=== PATIENT | male | born 1955 | race Caucasian/White ===

== ENCOUNTER 2019-04-28 08:56 | Day surgery (SDC) | payer BC ==
[~2019-04-28] VITALS: Ht 182.9 cm; Wt 94.3 kg
[2019-04-28] VITALS (11 sets, daily range): BP systolic 159–187; BP diastolic 98–118
[~2019-04-28 08:56] MED LIST: HEParin (CATH LAB) 2,000 ML IV ONE; HYDR1TAB PO; LIDOCAINE 1% INJ 20 ML 20 ML VIAL ONE; NS IV 1000 ML 1,000 ML ONE
[2019-04-28] MEDS ORDERED: NS IV 1000 ML 1,000 ML IV SCH ×2 (08:59→13:17)
[2019-04-28 09:22] LABS: HEMOGLOBIN 15.6 G/DL (13.3-17.7); MEAN PLATELET VOLUME 10.2 FL (7.4-10.4); RED CELL DISTRIBUTION WIDTH 12.9 % (10.0-14.5); WHITE BLOOD COUNT 8.6 10^3/uL (4.3-11.0)
[2019-04-28] MEDS ORDERED: CITA20TA9 PO (09:26)
[2019-04-28] MEDS ORDERED: MULT-633 PO (09:26)
[2019-04-28] MEDS ORDERED: RT-ALBUINH IH (09:26)
[2019-04-28] MEDS ORDERED: METO-333 PO (09:26)
[2019-04-28] MEDS ORDERED: ASPI-586 PO (09:26)
[2019-04-28 09:39] LABS: INR 0.9 (0.8-1.4); PROTHROMBIN TIME PATIENT 12.8 SEC (12.2-14.7)
[2019-04-28 09:45] LABS: ALBUMIN 4.3 GM/DL (3.2-4.5); BILIRUBIN,TOTAL 0.6 MG/DL (0.1-1.0); CALCIUM 9.3 MG/DL (8.5-10.1); CREATININE SERUM 1.67 MG/DL (0.60-1.30); POTASSIUM 4.1 MMOL/L (3.6-5.0)
[2019-04-28] MEDS ORDERED: MIDAZOLAM 5 MG/5 ML (VERSED) VIAL ONE (10:53)
[2019-04-28] MEDS ORDERED: fentaNYL INJECTION 100 MCG/2 ML AMP ONE (10:53)
--- OUTSIDE RECORDS SUMMARY | 2019-04-28 10:58 | XMS REPORT ---
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 V58.69 Nov, 0 [id number] Problem Multiple pulmonary nodules 793.19 Mar, 0 [id number] Problem Abdominal aortic aneurysm (AAA) I71.4 Oct, 0 57159923 Problem S/P aortic aneurysm repair Z98.890 Nov, 0 569375844 Problem Multiple pulmonary nodules R91.8 Mar, 0 217348405 Problem shelter current use of antiarrhythmic drug Z79.899 Nov, 0 312780171 Problem Paroxysmal atrial fibrillation 427.31 Oct, 0 465263018 Problem Crushing injury of right leg S87.81XA Apr, 0 81142738 Problem Precordial pain 786.51 Jan, 0 64201102 Problem Crushing injury of right leg 928.9 Apr, 0 31414120 Problem Hemiparesis G81.90 Sep, 0 11246832 Problem Precordial pain R07.2 Jan, 0 63844610 Problem Paroxysmal atrial fibrillation I48.0 Oct, 0 212172695 Problem Hemiparesis 342.90 Sep, 0 78093083 ALLERGIES No Information ENCOUNTERS Encounter Location Date Diagnosis [facility] [address] [place] [address] February, [facility] [address] [place] [address] Dec, [facility] [address] [facility] [id number] [place] [address] Oct, [facility] [address] [facility] [id number], [place] [address] Sep, [facility] [address] [facility] [id number], [place] [address] Nov, [facility] [address] [facility] [id number], [place] [address] Sep, IMMUNIZATIONS No Known Immunizations SOCIAL HISTORY Never Assessed REASON FOR VISIT Medication refill request PLAN OF CARE VITAL SIGNS MEDICATIONS Medication Instructions Dosage Frequency Start Date End Date Duration Status Amlodipine Besylate 10 MG Orally Once a day 1 tablet 24h Dec, 30 day(s) Active Amiodarone HCl 200 MG Orally Once a day 1 tablet 24h Dec, 30 day(s) Active Metoprolol Tartrate 25 MG Orally Twice a day 1 tablet with food 12h Dec, 30 day(s) Active Aspir-81 81 mg Orally Once a day 1 tablet 24h Dec, 30 day(s) Active Ventolin HFA 108 (90 Base) MCG/ACT Inhalation every 6 hrs 2 puffs as needed 6h Dec, 30 days Active Citalopram Hydrobromide 20 MG Orally at bedtime 1 tablet Dec, 30 day(s) Active RESULTS No Results PROCEDURES No Known procedures INSTRUCTIONS MEDICATIONS ADMINISTERED No Known Medications
--- OUTSIDE RECORDS SUMMARY | 2019-04-28 10:58 | XMS REPORT | Continuity of Care Document ---
Author Organization Unknown Address Unknown Allergies Active Description Code Type Severity Reaction Onset Reported/Identified Relationship to Patient Clinical Status Yes No Known Drug Allergies [id number] Drug Allergy Unknown N/A 05/15/2013 Medications There is no data. Problems There is no data. Procedures There is no data. Results Test Result Range A1C - 04/07/19 08:14 HEMOGLOBIN A1c 5.4 % of total Hgb <5.7 PSA (FREE AND TOTAL) - 04/07/19 08:14 PSA, TOTAL 2.1 ng/mL < OR=4.0 PSA, FREE 0.6 ng/mL NRG PSA, % FREE 29 % (calc) >25 Encounters ACCT No. Visit Date/Time Discharge Status Pt. Type Provider Facility Loc./Unit Complaint [id number] 04/09/2019 14:30:00 04/09/2019 23:59:59 [facility] [id number] 04/07/2019 08:15:00 Document Registration [id number] 05/15/2013 17:16:00 05/15/2013 20:24:00 DIS Emergency [id number] 04/28/2019 11:00:00 PEN Preadmit [facility] CATH CHEST DISCOMFORT
--- OUTSIDE RECORDS SUMMARY | 2019-04-28 10:58 | XMS REPORT | Continuity of Care Document ---
Author Author [facility] Organization [facility] Address Unknown Phone Unavailable Care Team Providers Care Meat Packager Name Role Phone NO, LOCAL PHYSICIAN PP Unavailable Insurance Providers Payer Name Policy Number Subscriber Name Relationship Work Comp Prashant Winters Advance Directives Directive Response Recorded Date Advance Directives N 05/15/13 5:34pm Problems No Known Problems or Medical conditions. Social History History Response Recorded Date/Time Alcohol Use Occasionally Uses 05/15/13 5:34pm Recreational Drug Use N 05/15/13 5:34pm Allergies, Adverse Reactions, Alerts Allergen Type Severity Reaction Last Updated No Known Drug Allergies 05/15/13 Medications Medication Dose Units Route Sig Qty Days Acetaminophen/Hydrocodone Bitart (Vicodin 5-500 Tablet) 1 - 2 Each PO Q4HR PRN 10 Response Recorded Date/Time Status not known Unknown Results No Known Relevant Diagnostic Tests, Laboratory Data and/or Discharge Summary. Encounters Encounter Location Date/Time Departed Emergency Room [facility] 05/15/13 5:16pm
[2019-04-28] MEDS ORDERED: LIDOCAINE 1% INJ 20 ML 20 ML VIAL ONE (12:00)
--- NOTE | 2019-04-28 13:17 | Cardiac Procedure Note-CS/ASA ---
Pre-Procedure Note Pre-Op Procedure Note H&P Reviewed The H&P was reviewed, patient examined and no changes noted. Date H&P Reviewed: Apr 28, 2019 Time H&P Reviewed: 11:30 Conscious Sedation Pre-Proced Time 11:30 ASA Score 3 For ASA 3 and 4: Consider anesthesia and medical clearance. Also, for patients with a history of failed moderate sedation consider anesthesia. Airway Lungs Heart ASA score ASA 1: a normal healthy patient ASA 2: a patient with a mild systemic disease (mid diabetes, controlled hypertension, obesity ASA 3: a patient with a severe systemic disease that limits activity (angina, COPD, prior Myocardial infarction) ASA 4: a patient with an incapacitating disease that is a constant threat to life (CHF, renal failure) ASA 5: a moribund patient not expected to survive 24 hrs. (ruptured aneurysm) ASA 6: a declared brain- patient whose organs are being harvested. For emergent operations, add the letter E after the classification Mallampati Classification Grade 2 Sedation Plan Analgesia, Amnesia, Plan communicated to team members, Discussed options with patient/fam, Discussed risks with patient/fam The patient is an appropriate candidate to undergo the planned procedure, sedation, and anesthesia. The patient immediately re-assessed prior to indication. MADALYN CHICAS MD FACP FAC CCDS Apr 28, 2019 13:17
[2019-04-28] MEDS ORDERED: PRAV20TA3 PO (13:25)
[2019-04-28] MEDS ORDERED: PATIENT MAY USE OWN MEDS, ALL PO SCH (13:30)
--- NOTE | 2019-04-28 13:34 | Discharge Inst-Post CATH ---
Discharge Inst-CATH/EP Post Cardiac Cath/EP D/C Inst Follow Up/Plan F/u at Dr Pulliam's office in 2-3 weeks Remove groin dressing tomorrow morning ACTIVITY * Go Home directly and rest. * Limit activity of the leg (or wrist if it was used) for 7 days including aerobics, swimming, jogging, bicycling, etc. * Restrict stair-climbing for 7 days if possible, if not, climb up with your non-cath leg, then bring together on the same step. * Avoid lifting, pushing, pulling or excessive movement of the affected extremity for 7 days. * Customary sexual activity may be resumed after 2 days-use caution not to use a position that strains or causes pain to the affected extremity. * No driving for 24 hours. * NO SMOKING. * Avoid straining for bowel movements for 7 days. * Gentle walking on level ground is allowed. * Returning to work will depend on the type of procedure and the results. Your doctor will discuss this with you. CALL YOUR DOCTOR FOR ANY OF THE FOLLOWING: *If bleeding from the puncture site occurs- Apply gentle pressure to site with clean cloth and call your doctor or EMS. * If a knot or lump forms under the skin, increases in size, or causes pain. * If bruising appears to be worsening or moving further down your leg instead of disappearing. * Temperature above 101 F. CARE OF YOUR GROIN INCISION; * Bruising or purple discoloration of the skin near the puncture site is common. * You may shower only, no bathtub bathing for 5 days. Be careful to avoid slipping as your leg may feel stiff. * If a closure device was used on your femoral artery, please see the attached guide regarding care of the device and your leg. * Leave dressing on FOR 24 hours. CARE OF YOUR WRIST INCISION; * Bruising or purple discoloration of the skin near the puncture site is common. * You may shower. * DO NOT submerge wrist. * Leave dressing on FOR 24 hours. MADALYN PULLIAM MD FACP FAC CCDS Apr 28, 2019 13:34
--- NOTE | 2019-04-28 13:35 | Discharge Inst-Cardiology ---
Discharge Inst-Cardiac Discharge Medications New Medications: Pravastatin Sodium (Pravastatin Sodium) 20 Mg Tablet 20 MG PO DAILY for 30 Days, #30 TAB 5 Refills Continued Medications: Albuterol Sulfate (Proair Hfa) 1 Puff Puff 2 PUFF IH Q6H, PUFF 1 PUFF = 90 MCG Aspirin (Aspir 81) 81 Mg Tablet.dr 81 MG PO DAILY, TAB Citalopram Hydrobromide (Citalopram HBr) 20 Mg Tablet 20 MG PO DAILY, TAB Metoprolol Tartrate (Metoprolol Tartrate) 25 Mg Tablet 25 MG PO BID, TAB Multivitamin (Daily Value) 1 Each Tablet 1 EACH PO DAILY, TAB MADALYN CHICAS MD FACP FAC CCDS Apr 28, 2019 13:35
--- NOTE | 2019-04-28 14:31 | CARDIAC CATHETERIZATION ---
DATE OF SERVICE: 04/28/2019 CARDIAC CATHETERIZATION REPORT The patient is a 64-year-old man who has multiple coronary artery disease risk factors and has a history of AAA repair at [facility] and also had unilateral nephrectomy at that time, which left him with chronic renal insufficiency. Lately, he has had symptoms consistent with angina pectoris. Cardiac catheterization was carried out today after having obtained informed consent. He was also made aware of his additional risk of contrast nephropathy, given baseline renal insufficiency. PROCEDURE: He was brought to the [facility] [place]. Vigorous perioperative hydration was started a few hours prior to the procedure, continued during the procedure and afterwards. He was brought to the cardiac catheterization laboratory. Right groin was prepared and draped in the usual sterile fashion. Lidocaine 1% with local anesthesia. Modified Seldinger technique was used to advance a 5-Tongan sheath in the right femoral artery. We used 5-Tongan JL3.5 and 5-Tongan JL4 catheters to engage the left coronary artery, but we were not able to do so. We engaged the right coronary artery with a 5-Tongan JR4 catheter. We used a pigtail to carry out left heart catheterization. Left ventricular angiography was not performed to conserve contrast. The pigtail was pulled back to the aortic root and aortic root angiography was performed. This was to see the location of the left coronary artery, which we were not able to engage with the 5-Tongan catheters. We did identify the location. We exchanged the sheath over a wire for a 6-Tongan sheath. We used a 6-Tongan JL4.5 catheter to engage the left coronary artery and diagnostic angiography was performed. The catheter was removed. Angiography of the right coronary artery was carried out through the sheath. Mynx was used to achieve hemostasis. He tolerated the procedure well. HEMODYNAMICS: Left ventricular end-diastolic pressure following coronary angiography was 14 mmHg. There is no significant pressure gradient on pullback across the aortic valve. Ascending aortic pressure was 162/95 with a mean of 120 mmHg. CORONARY ANGIOGRAPHY: Diffuse moderate coronary artery disease is present. There are multiple stenoses of up to 40% to 50%. Mild coronary calcification is also seen. AORTIC ROOT ANGIOGRAPHY: Aortic root angiography did not indicate any significant thoracic aortic aneurysm or dissection, to the extent visualized. Aortic valve leaflets exhibit good leaflet excursion. There does not appear to be significant aortic regurgitation. The origin of the coronary arteries was identified. CONCLUSIONS: 1. Diffuse moderate coronary artery disease involving all 3 vessels in multiple lesions of 40% to 50%. 2. Mild elevation of left ventricular end-diastolic pressure. DISCUSSION AND RECOMMENDATIONS: Based on results of the study, it appears appropriate to continue a conservative approach. Risk factor modification has been reviewed with him and outpatient followup is advised. Job ID: [id number] DocumentID: [id number] Dictated Date: 04/28/2019 12:18:03 Assistant Real Estate Manager Date: 04/28/2019 14:31:19 Dictated By: MADALYN CHICAS MD, MA, FACP, FACC,
[2019-04-28] MEDS ORDERED: AMLO5TAB4 PO (16:06)
[2019-04-28] MEDS ORDERED: amLODIPine 5 MG (NORVASC) TAB PO ONE (16:15)
--- NOTE | 2019-04-28 17:35 | OPERATIVE REPORT ---
DATE OF SERVICE: 04/28/2019 PREOPERATIVE DIAGNOSIS: History of stroke of undetermined etiology. POSTOPERATIVE DIAGNOSIS: History of stroke of undetermined etiology. PROCEDURE PERFORMED: Implantable loop recorder implantation. INDICATIONS: The patient is a 64-year-old man, who has had a stroke of which the etiology has not been determined. He has a history of palpitations which are infrequent. Implantable loop recorder implantation was carried out to evaluate for atrial fibrillation as a source of his stroke. DESCRIPTION OF PROCEDURE: Informed consent was obtained. [facility] The left prepectoral area was prepared and draped in the usual sterile fashion. Lidocaine 1% was used for local anesthesia. We used the tools provided with the iFollo Reveal LINQ device. A small incision was made anterior to the left fourth intercostal space and the device was placed in the subcutaneous space and the skin closed with a Dermabond and Steri-Strips. He tolerated the procedure well. The serial number of the device is [id number]. Job ID: [id number] DocumentID: [id number] Dictated Date: 04/28/2019 12:30:15 Buyer Planner Date: 04/28/2019 17:35:12 Dictated By: MADALYN CHICAS MD, MA, FACP, FACC,
== END 2019-04-28 16:30 | disposition home or self-care (01) ==
LOC: CATH 08:56 → SDC 13:00 → CATH 16:30
PROVIDERS: ATTEND Nurse Practitioner Family
DX: I48.0 Paroxysmal atrial fibrillation (principal); I69.354 Hemiplegia and hemiparesis following cerebral infarction affecting left non-dominant side; R00.2 Palpitations; N18.3 Chronic kidney disease, stage 3 (moderate); R07.89 Other chest pain; Z90.5 Acquired absence of kidney; Z79.82 Long term (current) use of aspirin; Z79.899 Other long term (current) drug therapy
CPT/HCPCS: 33285; 36415; 80053; 80061; 85027; 85610; 85730; 87081; 93458; 93567

== ENCOUNTER → 2019-05-14 | Outpatient (CLI) | payer BC ==
[~2019-05-14] MED LIST changes: +AMLO5TAB4 PO; +ASPI-586 PO; +CITA20TA9 PO; -HEParin (CATH LAB) 2,000 ML IV ONE; -LIDOCAINE 1% INJ 20 ML 20 ML VIAL ONE; +METO-333 PO; +MULT-633 PO; -NS IV 1000 ML 1,000 ML ONE; +PRAV20TA3 PO; +RT-ALBUINH IH
[2019-05-14 09:21] LABS: CREATININE SERUM 1.55 MG/DL (0.60-1.30); POTASSIUM 4.2 MMOL/L (3.6-5.0)
== END ==
LOC: RAD FS 08:26
PROVIDERS: ATTEND Internal Medicine Cardiovascular Disease
DX: N18.3 Chronic kidney disease, stage 3 (moderate) (principal)
CPT/HCPCS: 36415; 80048

== ENCOUNTER 2019-07-20 19:42 | Outpatient (CLI) | payer BC | END 2019-07-21 06:07 | disposition home or self-care (01) | LOC: SLEEP 19:42 | PROVIDERS: ATTEND Nurse Practitioner | DX: G47.33 Obstructive sleep apnea (adult) (pediatric) (principal); G47.10 Hypersomnia, unspecified; I48.91 Unspecified atrial fibrillation; G47.61 Periodic limb movement disorder; Z86.73 Personal history of transient ischemic attack (TIA), and cerebral infarction without residual deficits | CPT/HCPCS: 95810 ==

== ENCOUNTER → 2020-04-25 | Outpatient (CLI) | payer MEDICARE ==
[2020-04-25 08:46] LABS: BASOPHILS % (AUTO) 1 % (0-10); EOSINOPHILS % (AUTO) 4 % (0-10); HEMATOCRIT 42 % (40-54); HEMOGLOBIN 14.1 G/DL (13.3-17.7); LYMPHOCYTES % (AUTO) 32 % (12-44); MEAN CORPUSCULAR HEMOGLOBIN 31 PG (25-34); MEAN CORPUSCULAR HGB CONC 33 G/DL (32-36); MEAN CORPUSCULAR VOLUME 93 FL (80-99); MEAN PLATELET VOLUME 9.9 FL (7.4-10.4); MONOCYTES % (AUTO) 8 % (0-12); PLATELET COUNT 324 10^3/uL (130-400); RED CELL DISTRIBUTION WIDTH 12.9 % (10.0-14.5); WHITE BLOOD COUNT 9.1 10^3/uL (4.3-11.0)
[2020-04-25 08:47] LABS: BASOPHILS # (AUTO) 0.1 10^3/uL (0.0-0.1); EOSINOPHILS # (AUTO) 0.4 10^3/uL (0.0-0.3); MONOCYTES # (AUTO) 0.8 X 10^3 (0.0-1.0); NEUTROPHILS % (AUTO) 55 % (42-75)
[2020-04-25 09:00] LABS: ALBUMIN 4.1 GM/DL (3.2-4.5); BILIRUBIN,TOTAL 0.4 MG/DL (0.1-1.0); CALCIUM 8.7 MG/DL (8.5-10.1); CREATININE SERUM 1.36 MG/DL (0.60-1.30); TOTAL PROTEIN 7.1 GM/DL (6.4-8.2)
== END ==
LOC: LAB FS 08:15
PROVIDERS: ATTEND Internal Medicine Cardiovascular Disease
DX: I48.0 Paroxysmal atrial fibrillation (principal)
CPT/HCPCS: 36415; 80053; 83735; 84443; 85025

== ENCOUNTER → 2020-05-24 | Outpatient (CLI) | payer MEDICARE ==
--- NOTE | 2020-05-24 14:12 | Diagnostic Imaging Report ---
PROCEDURE: MR imaging of the brain without contrast. TECHNIQUE: Multiplanar, multisequence MR imaging of the brain was performed without contrast. INDICATION: Stroke-like symptoms. FINDINGS: There is nonspecific mild periventricular and subcortical white matter disease as a nonspecific finding but often attributed to the sequelae of chronic small vessel disease. No acute or suspicious appearing white matter pathology. No findings of vasogenic or cytotoxic edema. No abnormal diffusion restriction. No evidence for an acute or subacute ischemic infarct. There is no mass or mass effect. No evidence for an elevation to the intracranial pressures and there are no findings of hemorrhage. There are no abnormal extra-axial fluid collections. The basilar cisterns are patent. IMPRESSION: Mild nonspecific white matter disease. No findings of recent infarct, hemorrhage, or mass effect. No acute appearing abnormalities. Dictated by: Dictated on workstation # [id number]
== END ==
LOC: RAD 13:15
PROVIDERS: ATTEND Psychiatry & Neurology Neurology
DX: I63.9 Cerebral infarction, unspecified (principal)
CPT/HCPCS: 70551

== ENCOUNTER → 2020-08-09 | Outpatient (CLI) | payer MEDICARE ==
--- NOTE | 2020-08-09 14:54 | Diagnostic Imaging Report ---
INDICATION: Palpable lump right elbow. Time of exam 2:36 p.m. Three views of the right elbow were obtained. There is soft tissue swelling about the posterior elbow. This could be owing to olecranon bursitis. Olecranon appears to be intact. Proximal radius and distal humerus are intact. No fractures are seen. There is no joint effusion. IMPRESSION: Posterior soft tissue swelling, perhaps owing to olecranon bursitis. Dictated by: Dictated on workstation # [id number]
== END ==
LOC: RAD FS 14:18
PROVIDERS: ATTEND Nurse Practitioner
DX: M25.521 Pain in right elbow (principal)
CPT/HCPCS: 73080

== ENCOUNTER → 2021-06-01 | Outpatient (CLI) | payer MEDICARE ==
[~2021-06-01] MED LIST changes: +CATHETER FLUSH 10 ML SYR IV PRN; +HOLD METFORMIN - RECEIVED CONTRAST 20 ML VIAL IV SCH; +IOHEXOL 350 MG/ML 100 ML (OMNIPAQUE 350) VIAL IV ONE; +NS 100 ML (IVPB) BAG IV ONE
--- NOTE | 2021-06-01 11:36 | Diagnostic Imaging Report ---
EXAMINATION: CT abdomen with intravenous contrast. TECHNIQUE: Multiple contiguous axial images were obtained through the abdomen after the administration of intravenous contrast. All CT scans use one or more of the following dose optimizing techniques: automated exposure control, MA and/or KvP adjustment based on patient size and exam type or iterative reconstruction. HISTORY: KIDNEY CYSTS COMPARISON: None available. FINDINGS: Lung bases: Bibasilar dependent atelectasis. Solid organs: The liver is normal without focal lesion. The gallbladder is normal. There is no biliary ductal dilation. Pancreas is normal. Spleen is normal. Adrenal glands are normal. There is asymmetric right renal cortical atrophy and scarring. There is mild left renal cortical scarring. Bowel: There is a small hiatal hernia. No bowel obstruction. Peritoneum: There is no intraperitoneal free fluid or free air. No suspicious lymphadenopathy. Vasculature: Calcification of the aorta without aneurysm. Musculoskeletal: No suspicious osseous lesion or compression fracture. IMPRESSION: 1. Right renal cortical atrophy and scarring. Mild left renal cortical scarring. No hydronephrosis or suspicious renal lesion. 2. No other acute abnormality in the visualized abdomen. Dictated by: Dictated on workstation # [id number]
== END ==
LOC: RAD FS 09:41
PROVIDERS: ATTEND Family Medicine
DX: N28.1 Cyst of kidney, acquired (principal)
CPT/HCPCS: 74160

== ENCOUNTER 2021-11-19 18:13 | Emergency (ER) | payer MEDICARE ==
[~2021-11-19] VITALS: Ht 180.3 cm; Wt 86.1 kg
[~2021-11-19 18:13] MED LIST changes: -CATHETER FLUSH 10 ML SYR IV PRN; -HOLD METFORMIN - RECEIVED CONTRAST 20 ML VIAL IV SCH; -IOHEXOL 350 MG/ML 100 ML (OMNIPAQUE 350) VIAL IV ONE; -NS 100 ML (IVPB) BAG IV ONE
--- OUTSIDE RECORDS SUMMARY | 2021-11-19 18:21 | XMS REPORT | Clinical Summary ---
Author Author [facility] Organization [facility] Address Unknown Phone Unavailable Care Team Providers Care Ski Instructor Name Role Phone Nolan Waller MD PCP Allergies Comments Active Allergy Reactions Severity Noted Date Lisinopril Cough 03/14/2016 Medications End Date Status Medication Sig Dispensed Refills Start Date Active aspirin 81 MG EC tablet Take 81 mg by 0 mouth daily. Active MULTIVITAMIN ORAL Take by mouth 0 daily. Active albuterol sulfate 90 Inhale 90 mcg 0 mcg/actuation AePB every 4 (four) hours. Active citalopram (CELEXA) 20 mg Take 20 mg by 0 tablet mouth daily. Active LORazepam (ATIVAN) 0.5 MG Take 0.5 mg 0 tablet by mouth every 6 (six) hours as needed for anxiety. Active metoprolol tartrate Take 1 tablet 30 tablet 1 10/29 (LOPRESSOR) 50 MG tablet (50 mg total) 8 by mouth 2 (two) times a day. Active amLODIPine (NORVASC) 10 Take 1 tablet 30 tablet 1 201 MG tablet (10 mg total) 8 by mouth daily. Active polyethylene glycol Take 1 packet 14 each 0 10/29 (GLYCOLAX) 17 gram packet (17 g total) 8 by mouth daily. Active senna-docusate Take 2 30 tablet 1 (PERICOLACE) 8.6-50 mg tablets by 8 mouth 2 (two) times a day. Active oxyCODONE (ROXICODONE) 5 Take 1-2 50 tablet 0 0 11/21/201 MG immediate release tablets (5-10 8 tablet mg total) by mouth every 4 (four) hours as needed. Active amiodarone (CORDARONE) Take 1 tablet 30 tablet 1 0 200 MG tablet (200 mg 8 total) by mouth daily. 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 Problem Noted Date Acute renal failure superimposed on stage 3 chronic k idney disease 12/13/2017 Abdominal aortic aneurysm (AAA) 11/19/2017 Abdominal pain 11/19/2017 Paroxysmal atrial fibrillation 11/19/2017 Acute blood loss anemia 11/19/2017 Acute postoperative pain 11/15/2017 Left-sided weakness 11/15/2017 Hypotension 11/15/2017 Hypoxemia 11/15/2017 Atelectasis 11/15/2017 Leukocytosis 11/15/2017 Hemiparesis 10/17/2017 Multiple pulmonary nodules 04/25/2016 Essential hypertension S/P aortic aneurysm repair Overview: Formatting of this note might be differ ent from the original. 18MM X 30CM HEMASHIELD GOLD VASCULAR GR AFT care home current use of antiarrhythmic drug Overview: Formatting of this note might be differ ent from the original. Amiodarone Family History Medical History Relation Name Comments Emphysema Father Relation Name Status Comments Father Mother Social History Date Tobacco Use Types Packs/Day Years Used Never Smoker Smokeless Tobacco: Never Used Comments Alcohol Use Standard Drinks/Week Monthly Yes 0 (1 standard drink = 0.6 o z pure alcohol) Alcohol Habits Answer Date Recorded How often do you have a drink containing alcohol? No t asked How many drinks containing alcohol do you have on No t asked a typical day when you are drinking? How often do you have six or more drinks on one Not asked occasion? Comment: Monthly 03/13/2016 Sex Assigned at Date Recorded Not on file Last Filed Vital Signs Reading Time Taken Comments Vital Sign 132/85 12/13/2017 12:35 PM MARKETING SERVICES SPECIALIST Blood Pressure 59 12/13/2017 12:35 PM MARKETING SERVICES SPECIALIST Pulse 36.6 C (97.9 F) 11/21/2017 11:26 AM MARKETING SERVICES SPECIALIST Temperature 19 11/21/2017 11:26 AM MARKETING SERVICES SPECIALIST Respiratory Rate 99% 11/21/2017 11:26 AM MARKETING SERVICES SPECIALIST Oxygen Saturation - - Inhaled Oxygen Concentration 86.2 kg (190 lb) 12/13/2017 12:33 PM MARKETING SERVICES SPECIALIST Weight 180.3 cm (5' 11") 12/13/2017 12:33 PM MARKETING SERVICES SPECIALIST Height 26.5 12/13/2017 12:33 PM MARKETING SERVICES SPECIALIST Body Mass Index Plan of Treatment Health Maintenance Due Date Last Done Comments Td/Tdap# 1955 Colonoscopy 2001 Zoster Vaccine# (1 of 2) 2006 Fall Risk Assessment # 2021 Pneumococcal Vaccine: 65+ 2021 Years (1 of 1 - PPSV23) Influenza Vaccine (#1) 2021 Implants Device Identifier Shelf Expiration Date Model / Serial / L ot Implanted Type Area Manufactur er 07/27/2020 [id number] / [id number] / Implant Graft Hemashield 18mm X Non-Tissue N/A: Aorta A[employer]IUM 30cm St Tube Dbl Velour Knitted Implant [employer] L Vascular [id number] - [id number] Implanted: Qty: 1 on 11/15/2017 by Derrek Calle MD at [facility] Results Not on filefrom Last 3 Months Insurance Type Payer Benefit Subscriber ID Effective Phone Address Plan / Dates Group [employer] [id number] 2017-P [address] [employer] PPO resent [id number] [place] [address] 1 Prashant Winters Personal/F Self [address] [place] (Home) [place] [id number] 1 Prashant Winters Personal/F Self [address] [place] (Home) [place] [id number] 1 Advance Directives For more information, please contact: [phone] Patient Product Tester Fiberglass Explanation Type Date Recorded Advance Directives and Living Will Power of Energy Manager Health Care 11/15/2017 4:26 PM Directive Date Inactivated Comments Code Status Date Activated 11/21/2017 4:48 PM Full Code 11/13/2017 2:14 PM 03/14/2016 3:54 PM Per discussion 5/17. DNR 03/13/2016 2:47 PM 03/13/2016 2:47 PM Full Code 03/13/2016 2:42 PM Care Teams Start Date End Date Ski Instructor Relationship Specialty 03/13/16 Nolan Waller MD PCP - General [address] [id number]
[2021-11-19] MEDS ORDERED: RT-ALBUTEROL/IPRATROPIUM 3 ML (DUONEB) VIAL INH STA (18:44)
[2021-11-19 18:46] LABS: WHITE BLOOD COUNT 12.1 10^3/uL (4.3-11.0)
[2021-11-19] MEDS ORDERED: ORPHENADRINE 60 MG/2 ML (NORFLEX) AMP (ED ONLY) IVP STA (18:46)
[2021-11-19 18:47] LABS: BASOPHILS # (AUTO) 0.1 10^3/uL (0.0-0.1); BASOPHILS % (AUTO) 0 % (0-10); EOSINOPHILS # (AUTO) 0.1 10^3/uL (0.0-0.3); EOSINOPHILS % (AUTO) 1 % (0-10); HEMATOCRIT 41 % (40-54); HEMOGLOBIN 13.7 g/dL (13.3-17.7); LYMPHOCYTES # (AUTO) 2.5 X 10^3 (1.0-4.0); LYMPHOCYTES % (AUTO) 20 % (12-44); MEAN CORPUSCULAR HEMOGLOBIN 31 pg (25-34); MEAN CORPUSCULAR HGB CONC 33 g/dL (32-36); MEAN CORPUSCULAR VOLUME 93 fL (80-99); MEAN PLATELET VOLUME 9.2 fL (9.0-12.2); MONOCYTES # (AUTO) 1.3 X 10^3 (0.0-1.0); MONOCYTES % (AUTO) 11 % (0-12); NEUTROPHILS # (AUTO) 8.1 X 10^3 (1.8-7.8); NEUTROPHILS % (AUTO) 67 % (42-75); PLATELET COUNT 329 10^3/uL (130-400)
[2021-11-19 18:52] LABS: PROTHROMBIN TIME PATIENT 13.2 SEC (12.2-14.7)
--- NOTE | 2021-11-19 18:56 | ED General ---
General Chief Complaint: Chest Pain Stated Complaint: CHEST PAIN; EPISTAXIS Nursing Triage Note: Patient presents to the ED with c/o localized left sided chest tightness without radiation. States that pain began 1 hour prior to arrival. He reports an episode of left sided chest tightness yesterday that radiated to his back. Patient states that he had a cardiac procedure 11/09/21 to repair his Left Atrial Appendage. Source of Information: Patient, Spouse History of Present Illness Date Seen by Provider: Nov 19, 2021 Time Seen by Provider: 18:16 Initial Comments 66-year-old male presenting with complaints of tightness to the left chest, tight muscles in the left side of his neck, nosebleed that is been going off and on all day. He had chest pain yesterday that went straight through to his back. He did not go see Yesterday when he was having pain. Today when the pain was not bothering him as bad he came in after an hour of the tightness in his chest. He states that the pain is better if he is lying down. He reports he is more concerned about his intermittent nosebleeds throughout the day. The nosebleed is worse when he stands up and is doing things. He reports that he was having an elevated blood pressure 150s over 90s earlier. He was having some mild nausea from swallowing blood with the nosebleed. He does have some reproducible pain with palpation of the chest wall. He is not currently having any bleeding on arrival to the ED. He states the tightness in chest has been constant for about an hour prior to arrival in ED and is 3 out of 10. Timing/Duration: 1 Hour Severity: Mild Modifying Factors: worse with Movement (exertion makes it worse) Associated Systoms: No Cough, No Diaphoresis, No Fever/Chills, No Headaches, No Loss of Appetite, No Malaise, No Nausea/Vomiting, No Rash, No Seizure; Shortness of Air (mild, chronic); No Syncope, No Weakness Allergies and Home Medications Allergies Coded Allergies: No Known Drug Allergies (Unverified , 05/15/13) Patient Home Medication List Home Medication List Reviewed: Yes Albuterol Sulfate (Proair Hfa) 1 Puff Puff, 2 PUFF IH Q6H, (Reported) Entered as Reported by: CHRISTIANO CARBAJAL on 04/28/19 0990 Amlodipine Besylate (Norvasc) 5 Mg Tablet, 5 MG PO DAILY Prescribed by: RITIKA ANN on 04/28/19 1606 Aspirin (Aspir 81) 81 Mg Tablet.dr, 81 MG PO DAILY, (Reported) Entered as Reported by: CHRISTIANO CARBAJAL on 04/28/19925 Citalopram Hydrobromide (Citalopram HBr) 20 Mg Tablet, 20 MG PO DAILY, (Reported) Entered as Reported by: CHRISTIANO CARBAJAL on 04/28/19925 Metoprolol Tartrate (Metoprolol Tartrate) 25 Mg Tablet, 25 MG PO BID, (Reported) Entered as Reported by: CHRISTIANO CARBAJAL on 04/28/19925 Multivitamin (Daily Value) 1 Each Tablet, 1 EACH PO DAILY, (Reported) Entered as Reported by: CHRISTIANO CARBAJAL on 04/28/19925 Pravastatin Sodium (Pravastatin Sodium) 20 Mg Tablet, 20 MG PO DAILY Prescribed by: MADALYN CHICAS on 04/28/19 1325 Review of Systems Review of Systems Constitutional: No chills, No dizziness, No fever EENTM: epistaxis; No ear discharge, No ear pain, No vision loss, No dental problems Respiratory: No cough Cardiovascular: see HPI Gastrointestinal: nausea (mild from swallowing some blood with epistaxis today); No vomiting Genitourinary: no symptoms reported Musculoskeletal: neck pain (left side of neck sore and tight muscles) Skin: No rash Psychiatric/Neurological: Denies Headache Hematologic/Lymphatic: Easy Bleeding, Easy Bruising Past Fsxseea-Wlfksv-Hzyrds Hx Patient Social History Tobacco Use?: No Use of E-Cig and/or Vaping dev: No Substance use?: No Alcohol Use?: Yes Alcohol type: Beer Alcohol Frequency: Once in a while Pt feels they are or have been: No Immunizations Up To Date Influenza Vaccine Up-to-Date: No; Not Current First/Initial COVID19 Vaccinat: 2020 Second COVID19 Vaccination Aristeo: 2020 COVID19 Vaccine Die Repair: Erasmo Past Medical History Surgery/Hospitalization HX: HTN; Atrial Fibrillation; High Cholesterol; Parkinsons; Stage 3 CKD; COPD; Stroke; AAA; AAA repair; Cardiac Ablation 08/2022; Left atrial appendage (repaired with Amplatzer Amulet 11-09-21) Vascular Surgery COPD Currently Using CPAP: No Currently Using BIPAP: No Cardiac: Yes Atrial Fibrillation, High Cholesterol, Hypertension Stroke Renal Failure Gastrointestinal: No Cancer: No Blood Disorders: No Adverse Reaction/Blood Tranf: No Physical Exam Vital Signs Vital Signs - First Documented 11/19/21 18:15 Temp 36.8 Pulse 68 Resp 17 B/P (MAP) 154/94 (114) Pulse Ox 98 O2 Delivery Room Air Capillary Refill : Less Than 3 Seconds Height, Weight, BMI Height: 6'0.00" Weight: 208lbs. 0.0oz. 94.016624ld; 26.00 BMI Method: General Appearance: No Apparent Distress, WD/WN HEENT: Pharynx Normal, Other (superficial abrasion to right side anterior septum that is not actively bleeding currently. ) Neck: Full Range of Motion, Normal Inspection, Non Tender, Supple Respiratory: Normal Breath Sounds, No Accessory Muscle Use, No Respiratory Distress, Decreased Breath Sounds, Other (tender to chest wall on left side reproduces tightness and pain in chest with palpation) Cardiovascular: Regular Rate, Rhythm, Normal Peripheral Pulses Gastrointestinal: Normal Bowel Sounds, No Pulsatile Mass, Non Tender, Soft Extremity: Normal Capillary Refill, No Pedal Edema Neurologic/Psychiatric: Alert, Oriented x3 Skin: Normal Color, Warm/Dry Progress/Results/Core Measures Suspected Sepsis SIRS Temperature: Pulse: 68 Respiratory Rate: 17 Laboratory Tests 11/19/21 18:27: White Blood Count 12.1H Blood Pressure 154 /94 Mean: 114 Laboratory Tests 11/19/21 18:27: Creatinine 1.49H, INR Comment 1.0, Platelet Count 329, Total Bilirubin 0.2 Results/Orders Lab Results Laboratory Tests Test 11/19/21 18:27 Range/Units White Blood Count 12.1 H 4.3-11.0 10^3/uL Red Blood Count 4.43 4.30-5.52 10^6/uL Hemoglobin 13.7 13.3-17.7 g/dL Hematocrit 41 40-54 % Mean Corpuscular Volume 93 80-99 fL Mean Corpuscular Hemoglobin 31 25-34 pg Mean Corpuscular Hemoglobin Concent 33 32-36 g/dL Red Cell Distribution Width 12.6 10.0-14.5 % Platelet Count 329 130-400 10^3/uL Mean Platelet Volume 9.2 9.0-12.2 fL Immature Granulocyte % (Auto) 1 % Neutrophils (%) (Auto) 67 42-75 % Lymphocytes (%) (Auto) 20 12-44 % Monocytes (%) (Auto) 11 0-12 % Eosinophils (%) (Auto) 1 0-10 % Basophils (%) (Auto) 0 0-10 % Neutrophils # (Auto) 8.1 H 1.8-7.8 X 10^3 Lymphocytes # (Auto) 2.5 1.0-4.0 X 10^3 Monocytes # (Auto) 1.3 H 0.0-1.0 X 10^3 Eosinophils # (Auto) 0.1 0.0-0.3 10^3/uL Basophils # (Auto) 0.1 0.0-0.1 10^3/uL Immature Granulocyte # (Auto) 0.1 0.0-0.1 10^3/uL Prothrombin Time 13.2 12.2-14.7 SEC INR Comment 1.0 0.8-1.4 Activated Partial Thromboplast Time 30 24-35 SEC Sodium Level 135 135-145 MMOL/L Potassium Level 3.7 3.6-5.0 MMOL/L Chloride Level 100 98-107 MMOL/L Carbon Dioxide Level 19 L 21-32 MMOL/L Anion Gap 16 H 5-14 MMOL/L Blood Urea Nitrogen 15 7-18 MG/DL Creatinine 1.49 H 0.60-1.30 MG/DL Estimat Glomerular Filtration Rate 52 BUN/Creatinine Ratio 10 Glucose Level 127 H 70-105 MG/DL Calcium Level 8.6 8.5-10.1 MG/DL Corrected Calcium 8.5 8.5-10.1 MG/DL Magnesium Level 1.8 1.6-2.4 MG/DL Total Bilirubin 0.2 0.1-1.0 MG/DL Aspartate Amino Transf (AST/SGOT) 19 5-34 U/L Alanine Aminotransferase (ALT/SGPT) 17 0-55 U/L Alkaline Phosphatase 118 40-136 U/L Myoglobin 31.8 10.0-92.0 NG/ML Troponin I < 0.30 <0.30 NG/ML Pro-B-Type Natriuretic Peptide 415.3 H <75.0 PG/ML Total Protein 7.5 6.4-8.2 GM/DL Albumin 4.1 3.2-4.5 GM/DL Lipase 43 8-78 U/L My Orders Orders - HELENE MATUTE MD Cbc With Automated Diff (11/19/21 18:42) Magnesium (11/19/21 18:42) Chest 1 View Ap/Pa Only (11/19/21 18:42) Ekg Tracing (11/19/21 18:42) Comprehensive Metabolic Panel (11/19/21 18:42) Myoglobin Serum (11/19/21 18:42) Protime With Inr (11/19/21 18:42) Partial Thromboplastin Time (11/19/21 18:42) Monitor-Rhythm Ecg Trace Only (11/19/21 18:42) Ed Iv/Invasive Line Start (11/19/21 18:42) Lipase (11/19/21 18:42) Troponin I Fs (11/19/21 18:42) Probnp Fs (11/19/21 18:42) Albuterol/Ipra Inhalation Soln (Duoneb I (11/19/21 18:44) Svn Small Volume Nebulizer (11/19/21 18:44) Orphenadrine Inj (Ed Only) (Norflex Inje (11/19/21 18:46) Vital Signs/I&O 11/19/21 11/19/21 18:15 19:55 Temp 36.8 Pulse 68 75 Resp 17 16 B/P (MAP) 154/94 (114) 140/79 Pulse Ox 98 98 O2 Delivery Room Air Room Air Capillary Refill : Less Than 3 Seconds Blood Pressure Mean: 114 Progress Note #1: Progress Note Check electrocardiogram, chest x-ray, labs including cardiac enzymes. In terms of his nosebleed he is not currently having any bleeding but there is some irritation to the septum on the right side. He has been shoving toilet paper and tissue paper in his nose to try and help with the bleeding. This may have caused some of the irritation or it could have initially triggered the bleeding. Try a DuoNeb breathing treatment to help with the chest tightness since he does have a history of COPD. Give a dose of Norflex 30 mg IV and see if that helps with his tightness to the left side of his neck and tenderness to the palpation of his chest wall. 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 Differential diagnosis includes myocardial infarction, pneumonia, pulmonary effusion, pleuritic chest pain, pericarditis Progress Note #2: Progress Note Electrocardiogram does not show any acute ST elevation. Chest x-ray does not anselmo w any acute failure or infiltrate. He does have signs for COPD with scarring and a loop recorder is visible on the left side of his chest. His labs all appear stable without acute significant abnormality. His CBC does not show anemia or low platelets. His coags are normal. His chemistry panel shows the chronic renal insufficiency but no elevation of his troponin. Reassured patient and spouse and patient's symptoms were improved with treatment here in the ED. Counseled on follow-up and return precautions. Counseled on management of nosebleeds at home. Counseled on management of dryness in the nose that can contribute to bleeding ECG Initial ECG Impression Date: Nov 19, 2021 Initial ECG Impression Time: 18:13 Initial ECG Rate: 66 Initial ECG Rhythm: Normal Sinus Initial ECG Comparisson: No Previous ECG Available Comment Normal sinus rhythm with a heart rate of 66 bpm. Short MA interval of [address] elevation. Early transition for abnormal R wave progression. QT interval 417 ms with a QTc interval 437 ms. There is no prior tracing available for comparison. Diagnostic Imaging Diagonstic Imaging: Xray Plain Films/CT/US/NM/MRI: chest Comments [facility], [place] NAME: MAXIM TREVINO [facility] REC#: [id number] PT STATUS: REG ER : 1955 PHYSICIAN: HELENE MATUTE MD ADMIT DATE: 11/19/21/ER FS Signed Date of Exam:11/19/21 CHEST 1 VIEW AP/PA ONLY INDICATION: Chest tightness. COMPARISON: None. FINDINGS: There are some features of COPD and some scarring in the pulmonary apices. No pneumonia, failure, effusion or pneumothorax; however, loop recorder overlies the left chest. IMPRESSION: Chronic findings as described. Dictated by: Dictated on workstation # [id number] Dict: 11/19/211903 Trans: 11/19/211912 [facility] [id number] Interpreted by: AMANDA MERLOS Electronically signed by: AMANDA MERLOS 11/19/211912 Reviewed: Reviewed by Me Departure Impression Primary Impression: Anterior epistaxis Additional Impressions: Anterior chest wall pain Sensation of chest tightness COPD (chronic obstructive pulmonary disease) Qualified Codes: J44.9 - Chronic obstructive pulmonary disease, unspecified Disposition: 01 HOME, SELF-CARE Condition: Stable Departure-Patient Inst. Decision time for Depature: 19:53 Referrals: SIMÓN SOSA MD (PCP/Family) Primary Care Physician Patient Instructions: Nosebleeds ED, Chest Pain, Adult ED Add. Discharge Instructions: Your labs and tests looking at your heart had looked ok. You had findings of COPD and some scarring on Chest XRay but no pneumonia or fluid collection. Try some vaseline or triple antibiotic ointment to nares to help keep it moist so it does not get so dried out and it is not so easy to start bleeding. If you have recurrent bleeding you could try holding constant pressure on the nose for a solid 5 minutes before you release the pressure to see if that gets the bleeding to stop. An ice pack across the bridge of your nose or sucking on ice chips would help constrict the blood vessels to control the bleeding as well. Check back with your regular providers for continued symptoms. All discharge instructions reviewed with patient and/or family. Voiced understanding. HELENE MATUTE MD Nov 19, 2021 18:55
[2021-11-19 18:58] LABS: ALBUMIN 4.1 GM/DL (3.2-4.5); BILIRUBIN,TOTAL 0.2 MG/DL (0.1-1.0); CALCIUM 8.6 MG/DL (8.5-10.1); CREATININE SERUM 1.49 MG/DL (0.60-1.30); MAGNESIUM 1.8 MG/DL (1.6-2.4); POTASSIUM 3.7 MMOL/L (3.6-5.0); TOTAL PROTEIN 7.5 GM/DL (6.4-8.2)
--- NOTE | 2021-11-19 19:10 | Diagnostic Imaging Report ---
INDICATION: Chest tightness. COMPARISON: None. FINDINGS: There are some features of COPD and some scarring in the pulmonary apices. No pneumonia, failure, effusion or pneumothorax; however, loop recorder overlies the left chest. IMPRESSION: Chronic findings as described. Dictated by: Dictated on workstation # [id number]
[2021-11-19 19:55] VITALS: BP 140/79
== END 2021-11-19 20:10 | disposition home or self-care (01) ==
LOC: EDUNIT# 18:15 → ER FS 18:16
DX: R04.0 Epistaxis (principal); R07.89 Other chest pain; J44.9 Chronic obstructive pulmonary disease, unspecified; I10 Essential (primary) hypertension; E78.00 Pure hypercholesterolemia, unspecified; G20 Parkinson's disease; Z86.73 Personal history of transient ischemic attack (TIA), and cerebral infarction without residual deficits; Z79.82 Long term (current) use of aspirin; Z79.899 Other long term (current) drug therapy
CPT/HCPCS: 36415; 71045; 80053; 83690; 83735; 83874; 83880; 84484; 85025; 85610; 85730; 93005; 93041

== ENCOUNTER → 2022-03-28 | Outpatient (CLI) | payer MEDICARE ==
[~2022-03-28] MED LIST changes: +RT-ALBUTEROL SULF 2.5 MG/3 ML PRE-MIX VIAL INH ONE
== END ==
LOC: RT 14:18
PROVIDERS: ATTEND Internal Medicine Critical Care Medicine
DX: J44.9 Chronic obstructive pulmonary disease, unspecified (principal); G47.33 Obstructive sleep apnea (adult) (pediatric); R91.1 Solitary pulmonary nodule
CPT/HCPCS: 94060; 94726; 94729

== ENCOUNTER 2022-07-14 19:16 | Outpatient (CLI) | payer MEDICARE ==
[~2022-07-14 19:16] MED LIST changes: -RT-ALBUTEROL SULF 2.5 MG/3 ML PRE-MIX VIAL INH ONE
== END 2022-07-15 05:50 | disposition home or self-care (01) ==
LOC: SLEEP 19:16
PROVIDERS: ATTEND Internal Medicine Critical Care Medicine
DX: G47.33 Obstructive sleep apnea (adult) (pediatric) (principal)
CPT/HCPCS: 95810

== ENCOUNTER → 2022-11-16 | Outpatient (CLI) | payer MEDICARE ==
[~2022-11-16] VITALS: Ht 180 cm; Wt 96.0 kg
[~2022-11-16] MED LIST changes: +ALBU8.5H6 IH; +CATHETER FLUSH 10 ML SYR IVP PRN; +REGADENOSON 0.4 MG/5 ML SYR (LEXISCAN) IV ONE; -RT-ALBUINH IH
[2022-11-16 09:04] VITALS: BP 142/96
== END ==
LOC: CARD 07:45
PROVIDERS: ATTEND Internal Medicine Cardiovascular Disease
DX: I25.10 Atherosclerotic heart disease of native coronary artery without angina pectoris (principal)
CPT/HCPCS: 78452; 93017; A9502

== ENCOUNTER → 2022-11-20 | Outpatient (CLI) | payer MEDICARE, MEDICAID ==
[~2022-11-20] MED LIST changes: -CATHETER FLUSH 10 ML SYR IVP PRN; -REGADENOSON 0.4 MG/5 ML SYR (LEXISCAN) IV ONE
== END ==
LOC: CARDFS 12:07
PROVIDERS: ATTEND Internal Medicine Cardiovascular Disease
DX: R06.09 Other forms of dyspnea (principal)
CPT/HCPCS: 93306